=== PATIENT | female | born 1985 | race Caucasian/White ===

== ENCOUNTER 2019-09-19 16:31 | Inpatient (IN) | payer MEDICAID ==
[~2019-09-19] VITALS: Ht 157.5 cm; Wt 74.6 kg
[2019-09-19 16:38] VITALS: Ht 157.5 cm; Wt 74.6 kg
[2019-09-19 20:28] LABS: microscopic required? YES; urine erythrocyte 3+ (NEGATIVE)
[2019-09-19 20:51] LABS: CALCIUM 9.2 mg/dL (8.5-10.1); CARBON DIOXIDE 27.1 mmol/L (21-32); CHLORIDE SERUM 97 mmol/L (98-107); CREATININE SERUM 0.6 mg/dL (0.6-1.0); GFR1 > 60 mL/min; GLUCOSE SERUM 265 mg/dL (74-106); POTASSIUM SERUM 4.4 mmol/L (3.5-5.1); SODIUM SERUM 133 mmol/L (136-145)
[2019-09-19 20:56] LABS: ALKALINE PHOSPHATASE 104 U/L (46-116); ALT/SGPT 13 U/L (14-59); AMYLASE 39 U/L (25-115); AST/SGOT 9 U/L (15-37); BILIRUBIN TOTAL 0.2 mg/dL (0.20-1.00); LIPASE 127 IU/L (73-393); TOTAL PROTEIN, SERUM 7.7 g/dL (6.4-8.2)
[2019-09-19 21:03] LABS: ALBUMIN 2.3 g/dL (3.4-5.0)
[2019-09-19 21:06] LABS: BASOPHIL % 0.4 % (0-2)
[2019-09-19 21:14] LABS: PLATELET COUNT 632 x10^3mcL (130-400); RED CELL DISTRIBUTION WIDTH 18.2 % (11.5-14.5)
[2019-09-19 21:30] LABS: rbc morphology (normal/abnorm) ABNORMAL (NORMAL)
[2019-09-20] VITALS (9 sets, daily range): BP systolic 88–106; BP diastolic 49–63
[2019-09-20 02:40] LABS: T3 TOTAL 0.91 ng/mL
[2019-09-20 02:53] LABS: AMPHETAMINE QUAL UR NONE DETECTED (See below)
[2019-09-20 03:00] LABS: FREE T4 0.91 ng/dL (0.76-1.46); FREE THYROXINE INDEX 2.3 ug/dL (1.4-4.5); T4(THYROXINE) 6.4 ug/dL (4.7-13.3)
[2019-09-20 04:48] LABS: CALCIUM 8.4 mg/dL (8.5-10.1); CARBON DIOXIDE 26.6 mmol/L (21-32); CHLORIDE SERUM 97 mmol/L (98-107); CREATININE SERUM 0.5 mg/dL (0.6-1.0); GFR1 > 60 mL/min; GLUCOSE SERUM 265 mg/dL (74-106); POTASSIUM SERUM 4.7 mmol/L (3.5-5.1); SODIUM SERUM 135 mmol/L (136-145)
[2019-09-20 04:49] LABS: MAGNESIUM 1.9 mg/dL (1.8-2.4); PHOSPHOROUS 3.2 mg/dL (2.5-4.9)
[2019-09-20 04:52] LABS: BASOPHIL % 0.4 % (0-2)
[2019-09-20 04:56] LABS: RED CELL DISTRIBUTION WIDTH 20.7 % (11.5-14.5)
[2019-09-20 04:57] LABS: PLATELET COUNT 572 x10^3mcL (130-400)
[2019-09-20 06:09] LABS: rbc morphology (normal/abnorm) ABNORMAL (NORMAL); target cell (codocyte) 1+; tear drop cell (dacryocyte) 1+
[2019-09-20 10:55] LABS: CALCIUM 8.6 mg/dL (8.5-10.1); CARBON DIOXIDE 28.1 mmol/L (21-32); CHLORIDE SERUM 104 mmol/L (98-107); CREATININE SERUM 0.5 mg/dL (0.6-1.0); GFR1 > 60 mL/min; GLUCOSE SERUM 207 mg/dL (74-106); POTASSIUM SERUM 4.1 mmol/L (3.5-5.1); SODIUM SERUM 139 mmol/L (136-145)
[2019-09-20 10:56] LABS: BASOPHIL % 1.2 % (0-2)
[2019-09-20 10:57] LABS: PLATELET COUNT 543 x10^3mcL (130-400); RED CELL DISTRIBUTION WIDTH 20.9 % (11.5-14.5)
[2019-09-20 11:45] LABS: ovalocyte/elliptocyte 1+; rbc morphology (normal/abnorm) ABNORMAL (NORMAL); tear drop cell (dacryocyte) 1+
[2019-09-20 17:21] LABS: BASOPHIL % 0.7 % (0-2); RED CELL DISTRIBUTION WIDTH 21.9 % (11.5-14.5)
[2019-09-20 17:22] LABS: PLATELET COUNT 582 x10^3mcL (130-400)
[2019-09-21 01:00] VITALS: BP 97/53
[2019-09-21 06:06] VITALS: BP 108/65
[2019-09-21 06:53] LABS: CALCIUM 8.6 mg/dL (8.5-10.1); CARBON DIOXIDE 25.9 mmol/L (21-32); CHLORIDE SERUM 105 mmol/L (98-107); CREATININE SERUM 0.5 mg/dL (0.6-1.0); GFR1 > 60 mL/min; GLUCOSE SERUM 142 mg/dL (74-106); POTASSIUM SERUM 3.6 mmol/L (3.5-5.1); SODIUM SERUM 139 mmol/L (136-145)
[2019-09-21 08:00] VITALS: BP 130/74
[2019-09-21 09:12] VITALS: BP 108/65
[2019-09-21] MEDS ORDERED: AVIDOXY100 MG PO (11:23)
[2019-09-21] MEDS ORDERED: LAC PO (11:24)
[2019-09-21] MEDS ORDERED: METRONIDAZOLE500 M1 PO (11:24)
[2019-09-21] MEDS ORDERED: TYL325 PO (11:26)
[2019-09-21 12:58] LABS: BASOPHIL % 0.6 % (0-2)
[2019-09-21 13:06] VITALS: BP 108/65
[2019-09-21 13:11] LABS: RED CELL DISTRIBUTION WIDTH 22.3 % (11.5-14.5)
[2019-09-21 14:00] LABS: rbc morphology (normal/abnorm) ABNORMAL (NORMAL)
[2019-09-21 14:02] LABS: PLATELET COUNT 560 x10^3mcL (130-400)
[2019-09-21 14:11] VITALS: BP 98/59
[2019-09-21] MEDS ORDERED: FORTAMET1000 MG PO (15:05)
[2019-09-22 06:10] LABS: RAPID PLASMA REAGIN Non Reactive (Non Reactive)
== END 2019-09-21 15:05 | disposition home or self-care (01) | DRG 532 ==
LOC: ED 16:31 → MU 09-20 01:44
PROVIDERS: Emergency Medicine; ADMIT Student in an Organized Health Care Education/Training Program
DX: T83.32XA Displacement of intrauterine contraceptive device, initial encounter (principal); E43 Unspecified severe protein-calorie malnutrition; E87.8 Other disorders of electrolyte and fluid balance, not elsewhere classified; D62 Acute posthemorrhagic anemia; E87.1 Hypo-osmolality and hyponatremia; N39.0 Urinary tract infection, site not specified; D47.3 Essential (hemorrhagic) thrombocythemia; E04.8 Other specified nontoxic goiter; N93.8 Other specified abnormal uterine and vaginal bleeding; F17.210 Nicotine dependence, cigarettes, uncomplicated; Z68.30 Body mass index [BMI] 30.0-30.9, adult
CPT/HCPCS: 82962; 84439; 87491; 87591; G0378; J0696; J1580; J2270; J2405; J3490; J7030; J7050; J7060; P9016; Q0092; Q0163; Q9967